=== PATIENT | male | born 1965 | race Asian ===

== ENCOUNTER 2024-05-04 10:08 | Outpatient (AMB) | payer OTHER, SELFPAY ==
--- NOTE | 2024-05-04 10:28 | MHC.PC.OV ---
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 Intake Note: establish care Power Tong Operator Required: Yes Power Tong Operator Language: Radha Power Tong Operator Name: pt refused Manager Of Network: Present Accompanied by: Daughter Followed by:: larry sanders Allergies No Known Allergies Allergy (Verified 05/04/24 10:31) Medication List - Last Reconciled 05/04/24 by Jules Franks MD cholecalciferol (vitamin D3) 5,000 units PO DAILY multivitamin 1 tab PO DAILY Tobacco use date assessed: 05/04/24 Dental Screening Dental Screen Date: 05/04/24 Did you have a dental visit in the last 12 months?: Yes Did you have a dental problem in the last 6 months where you did not have access to dental care?: No Was dental information given to patient?: No 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 ?? [facility] Last office visit/CPE:? 2022 Acute issue(s):? HTN - checks at home SBP 145-150, HLD - Elevated cholesterol A1c 5.4 Sweating ?? PMHx:? As above SurgHx:? None FHx:? Dad: DM2, HTN, HLD, Hypothyroid. Mom: Osteoporosis, HLD. SocHx:?Nonsmoker. EtOh None. No drugs PFSH Family History (Updated 05/04/24 @ 10:37 by Chacho Dan CMA) Mother Osteoporosis Father High blood pressure Diabetes Social History Housing: House Patient Tobacco Use Status: Never used Tobacco e-Cigarette/Vaping Use: Never Used Second Hand Smoke Exposure: No service: No Current occupational status: employed Current occupation: [employer] Current occupational exposures/hazards: Yes Cognitive needs: No Hearing needs: No Vision needs: Yes Questionnaire PHQ-9 Over the last 2 weeks, how often have you been bothered by any of the following problems? 1. Little interest or pleasure in doing things: not at all 2. Feeling down, depressed, or hopeless: not at all 3. Trouble falling or staying asleep, or sleeping too much: not at all 4. Feeling tired or having little energy: not at all 5. Poor appetite or overeating: not at all 6. Feeling bad about yourself - or that you are a failure or have let yourself or your family down: not at all 7. Trouble concentrating on things, such as reading the newspaper or watching television: not at all 8. Moving or speaking so slowly that other people could have noticed. Or the opposite - being so fidgety or restless that you have been moving around a lot more than usual: not at all 9. Thoughts that you would be better off or of hurting yourself in some way: not at all Total score: 0 Depression Screening Interpretation: Negative Depression Screening Done: Yes 60614 - PHQ-9 Billing: Yes Source: Developed by Drs. Raymond Evangelista, Mattie Herrera, Dre Jason and colleagues, with an educational katina from [employer]. Thrive Questionnaire Date Thrive assessed: 05/04/24 I am a: Patient What is your living situation today?: I have a steady place to live Within the past 12 months, did the food you bought not last and you didn't have the money to get more?: Never true Within the past 12 months, did you worry whether your food would run out before you got money to buy more?: Never true Do you have trouble paying for medicines?: No Do you have trouble getting transportation to medical appointments?: No Do you have trouble paying your heating and electricity bill?: No Do you have trouble taking care of your child, family member or friend?: No Do you have trouble with day-to-day activities such as bathing, preparing meals, shopping, managing finances, etc.?: No Are you currently unemployed and looking for a job?: No Are you interested in more education?: Yes Please select the resources that you would like help with: None Currently or been in a relationship where the following occur: No concerns reported THRIVE Score: 0 AUDIT C Alcohol Use Questionnaire (AUDIT-C) 1. How often do you have a drink containing alcohol?: Never 3. How often do you have six or more drinks on one occasion?: Never Total Score: 0 Score Reviewed/Action Taken: Yes ILIANA-7 AMB Questionnaire ILIANA-7 Date ILIANA - 7 assessed: 05/04/24 Feeling nervous, anxious, or on edge: 0 = Not at all Not being able to stop or control worryin = Not at all Worrying too much about different things: 0 = Not at all Trouble relaxin = Not at all Being so restless that it is hard to sit still: 0 = Not at all Becoming easily annoyed or irritable: 0 = Not at all Feeling afraid as if something awful might happen: 0 = Not at all Total ILIANA-7 score (0-4 normal; 5-9 mild; 10-14 moderate; 15-21 severe): 0 Source: Developed by Drs. Raymond Evangelista, Mattie Herrera, Dre Jason and colleagues, with an educational katina from [employer]. ILIANA-7 Assessment Billing ILIANA-7 Assessment Tool: ILIANA-7 Assessment 35226 Review of Systems Const Denies chills, Denies fatigue, Denies fever(s), Denies headache(s) and Denies weakness ENT Denies dizziness and Denies headache(s) Card Denies chest pain, Denies lightheadedness, Denies dyspnea and Denies other (Palpitations) Resp Denies cough, Denies dyspnea, Denies wheezing and Denies other ( shortness of breath) Musc Denies numbness and Denies tingling Neuro Denies dizziness, Denies headache(s), Denies numbness, Denies tingling, Denies paresthesias and Denies weakness Psych Denies anxiety and Denies depression Endo Denies fatigue Aller/Immun Denies wheezing Physical exam (Primary Care) Depression Screening Interpretation: Negative Thrive Assessment: Date of Thrive Assessment Date Thrive assessed 05/03/24 05/04/24 10:30 Currently or been in a relationship where the following occur: No concerns reported Const General: no acute distress and well developed Nutritional Appearance: well nourished Orientation/consciousness: patient oriented x3 HENMT Head: Yes normocephalic and Yes atraumatic Eyes General: appearance normal, both eyes and all related structures Pupils: Equal, round and reactive pupils present EOM: EOMs intact bilaterally Resp Effort & Inspection: normal respiratory effort Auscultation: clear to auscultation bilaterally Cardio Rate: regular rate Rhythm: regular rhythm Heart sounds: S1 normal heart sound present, S2 normal heart sound present, no gallops, no murmurs and no rubs Neuro General: patient oriented x3 and gait normal Cranial nerves: Yes Equal, round and reactive pupils present Psych Affect: normal affect Coding Level of Care Code New Pt Level 4 (85793) Diagnoses Hypertension I10 Sleep apnea G47.30 Hyperlipidemia E78.5 Elevated fasting blood sugar R73.01 Headache R51.9 Laboratory exam ordered as part of routine general medical examination Z00.00 Additional Codes ILIANA-7 Assessment Billing - ILIANA-7 Assessment Tool: ILIANA-7 Assessment 71959 ([id number]) PHQ-9 - 74347 - PHQ-9 Billing: Yes ([id number]) Assessment & Plan Assessment & Plan (1) Hypertension: Code(s): I10 - Essential (primary) hypertension Category: Medical Plan: Blood?pressure?mildly?elevated?in?the?office. Systolic?blood?pressures?into?the?150s?at?home. Goal?is?less?than?140/90 Start?losartan?25?mg?daily (2) Sleep apnea: Code(s): G47.30 - Sleep apnea, unspecified Category: Medical Plan: Concern?for?sleep?apnea Referred?to?Sleep?Medicine (3) Hyperlipidemia: Code(s): E78.5 - Hyperlipidemia, unspecified Category: Medical Plan: History?of?elevated?lipids Check labs (4) Elevated fasting blood sugar: Code(s): R73.01 - Impaired fasting glucose Category: Medical Plan: History?of?elevated?fasting?blood?sugars. ?Daughter?reports?A1c?around?5.4?which?is?towards?top?normal?range May?have?some?insulin?resistance?or?pre?diabetes. Check?A1c (5) Headache: Code(s): R51.9 - Headache, unspecified Category: Medical Plan: Occasional?headaches. Checking?labs Also,?as?above?concern?for?sleep?apnea?which?may?be?an?underlying?cause. We?can follow-up?at?next?visit (6) Laboratory exam ordered as part of routine general medical examination: Code(s): Z00.00 - Encounter for general adult medical examination without abnormal findings Category: Medical Plan: Check?labs Orders: Orders Lipid Panel Today Z00.00 - Encounter for general adult medical examination without abnormal findings Prostate Specific Antigen Scr Today Z12.5 - Encounter for screening for malignant neoplasm of prostate TSH reflex Free T4 Today Z00.00 - Encounter for general adult medical examination without abnormal findings Vitamin D 25-OH Total Today E55.9 - Vitamin D deficiency, unspecified T Spot TB Today R61 - Generalized hyperhidrosis Comprehensive Otis. Panel Fast Today Z00.00 - Encounter for general adult medical examination without abnormal findings Microalbumin, Random (w Creat) Today I10 - Essential (primary) hypertension UA and rflx microscopic Today Z00.00 - Encounter for general adult medical examination without abnormal findings Hemoglobin A1c Today R73.01 - Impaired fasting glucose Referrals Sleep Medicine Referral G47.30 - Sleep apnea, unspecified Medications: New losartan 25 mg PO DAILY 90 days 90 tabs 3RF
[2024-05-04 10:39] VITALS: BP 140/80; PULSE 72; RESP 14; TEMP 36.6; O2SAT 100; BMI 25.0
== END 2024-05-04 11:12 | disposition home or self-care (01) ==
PROVIDERS: PCP Family Medicine; Visit Provider Family Medicine
DX: I10 Essential (primary) hypertension (principal); G47.30 Sleep apnea, unspecified; E78.5 Hyperlipidemia, unspecified; R73.01 Impaired fasting glucose; R51.9 Headache, unspecified; Z00.00 Encounter for general adult medical examination without abnormal findings

== ENCOUNTER → 2024-05-04 10:08 | Outpatient (BNVA) | payer OTHER, SELFPAY | PROVIDERS: PCP Family Medicine; Visit Provider Family Medicine | DX: Z00.00 Encounter for general adult medical examination without abnormal findings (principal); I10 Essential (primary) hypertension; G47.30 Sleep apnea, unspecified; E78.5 Hyperlipidemia, unspecified; R73.01 Impaired fasting glucose; R51.9 Headache, unspecified | CPT/HCPCS: 96127 ==

== ENCOUNTER 2024-05-04 11:33 | Outpatient (REF) | payer OTHER, SELFPAY ==
--- OUTSIDE RECORDS SUMMARY | 2024-05-04 13:12 | XMS_ITS | Clinical Summary ---
Author Organization [facility] Address [address] [place] [address] Care Team Providers Care Academic Dean Name Role Phone Renita Brown [facility] Primary Care Provider Source Comments PLEASE NOTE, if this patient is a minor, it may be UNLAWFUL to discuss sensitive information that is contained in these records (such as FAMILY PLANNING, MENTAL HEALTH or SUBSTANCE ABUSE) with the minor patient's parent or other person without the patient's specific authorization.[facility] Allergies No known active allergies Medications cholecalciferol, vitamin D3, (VITAMIN D3) 50,000 unit tab tabletIndication s:Low serum vitamin D Take 1 Tab by mouth once a week 12 Tab 1 07/06/2018 Active Active Problems Problem Noted Date Diagnosed Date Low serum vitamin D 07/06/2018 Immunizations Name Administration Dates Next Due TDAP 07/03/2018 Family History Medical History Relation Name Comments Diabetes Father Arthritis Mother Asthma Sister Relation Name Status Comments Brother Alive Father Alive Mother Alive Sister Alive Social History Tobacco Use Types Packs/Day Years Used Date Smoking Tobacco: Never Smokeless Tobacco: Former Alcohol Use Standard Drinks/Week Comments No 0 (1 standard drink = 0.6 oz pur e alcohol) Social Connections Answer Date Recorded Social Connections and Isolation 0 11/16/2018 Financial Resource Strain Answer Date R ecorded Financial Resource Strain 0 2018 Stress Answer Date Recorded Stress 0 11/16/2018 Physical Activity Answer Date Recorded Physical Activity 0 11/16/2018 Food Insecurity Answer Date Recorded Food 0 11/16/2018 Transportation Needs Answer Date Record ed Transportation 0 11/16/2018 Housing Stability Answer Date Recorded Housing 0 11/16/2018 Safety and Environment Answer Date Thomas rded Safety 0 11/16/2018 Utilities Answer Date Recorded Utilities 0 11/16/2018 Employment Answer Date Recorded Employment 0 11/16/2018 Sex and Gender Information Value Date Recorded Sex Assigned at Male 07/03/2018 6:25 AM PDT Legal Sex Male 11:29 AM PDT Gender Identity Male 07/03/2018 6:25 AM PDT Sexual Orientation Straight 07/03/2018 6: 25 AM PDT Last Filed Vital Signs Vital Sign Reading Time Taken Comments Blood Pressure 130/92 07/03/2018 9:17 AM EDT Pulse 64 07/03/2018 9:17 AM EDT Temperature 36.4 ??C (97.5 ??F) 07/03/2018 9:17 AM ED T Respiratory Rate 16 07/03/2018 9:17 AM EDT Oxygen Saturation - - Inhaled Oxygen Concentration - - Weight 69.9 kg (154 lb 3.2 oz) 07/03/2018 9:17 A M EDT Height 164.1 cm (5' 4.61 ) 07/03/2018 9:17 AM ED T Body Mass Index 25.97 07/03/2018 9:17 AM EDT Plan of Treatment Not on file Insurance [employer] Member Subscriber Plan / Payer (Ef fective 2018-Present) Name:Hardy Jcak Relation to Subscriber:Self Name:Hardy Jack Payer ID:[id number] Type:Indemnity Address: [facility] [address] [place] [address] Care Teams Academic Dean Relationship Specialty Start Date End Date Renita Brown FNP [address] [place] [id number] PCP - General Internal Medicine 07/23/18
--- OUTSIDE RECORDS SUMMARY | 2024-05-04 13:12 | XMS_ITS | Clinical Summary ---
Author Organization [facility] Address [address] [place] [id number] Care Team Providers Care Ladder Operator Name Role Phone Ann Marie Mohan DIGITAL ARTIST Primary Care Provider [phone] Allergies No known active allergies Medications Medication Sig Dispensed Refills Start Date End Date Status multivitamin capsule Take 1 capsule by mouth 1 (one) time each day. Active Active Problems Problem Noted Date Diagnosed Date Mixed hyperlipidemia 05/30/2021 Impaired fasting glucose 05/30/2021 Low serum vitamin D 07/06/2018 Resolved Problems Problem Noted Date Diagnosed Date Resolved Date COVID-19 05/19/2020 05/29/2021 Immunizations Name Administration Dates Next Due COVID-19 Pfizer SARS-CoV2 mR NA PF 30mcg/0.3mL Vaccine (Purple) 03/14/2021,08/12/2020,07/22/2020 Influenza, trivalent (IIV3), split virus (single-dose) PF 03/05/2021 Tdap 07/03/2018 Zoster, Recombinant (Shingrix) 03/25/2020,2019 Family History Medical History Relation Comments Diabetes Father Relation Status Comments Father Alive Mother Alive Social History Tobacco Use Types Packs/Day Years Used Date Smoking Tobacco: Never Smokeless Tobacco: Never Comments:Works @ [employer] Alcohol Use Standard Drinks/Week Comments Never 0 (1 standard drink = 0.6 oz pur e alcohol) Humiliation, Afraid, Rape, and Kick questionnair e Answer Date Recorded Within the last year, have y ou been afraid of your partner or ex-partner? No 05/19/2020 Within the last year, have y ou been humiliated or emotionally abused in other ways by your partner or ex-partner? No Within the last year, have y ou been kicked, hit, slapped, or otherwise physically hurt by your partner or ex-partner? No 05/19/2020 Within the last year, have y ou been raped or forced to have any kind of sexual activity by your partner or ex-partner? No 05/19/2020 AUDIT-C Answer Date Recorded Q1: How often do you have a drink containing alc ohol? Never 05/19/2020 Average Number of Drinks Not on file 021 Frequency of Binge Drinking Not on file 04/25 Overall Financial Resource Strain (CARDIA) Answe r Date Recorded How hard is it for you to pa y for the very basics like food, housing, medical care, and heating? Patient declined 05/19/2020 PHQ-2 Answer Date Recorded Depression Risk (PHQ2) Score 0 [facility] - Occupational Stress Questionnaire Answer Date Recorded Do you feel stress - tense, restless, nervous, or anxious, or unable to sleep at night because your mind is troubled all the time - these days? Only a little 05/19/2020 Exercise Vital Sign Answer Date Recorde d On average, how many days pe r week do you engage in moderate to strenuous exercise (like a brisk walk)? 0 days Minutes of Exercise per Session Not on file 05/19/2020 Hunger Vital Sign Answer Date Recorded Within the past 12 months, y ou worried that your food would run out before you got the money to buy more. Never true 05/19/19 21 Within the past 12 months, t he food you bought just didn't last and you didn't have money to get more. Never true 05/19/2020 PRAPARE - Transportation Answer Date Re corded In the past 12 months, has l ack of transportation kept you from medical appointments or from getting medications? No 04/25 In the past 12 months, has l ack of transportation kept you from meetings, work, or from getting things needed for daily living? No 05/19/2020 Sex and Gender Information Value Date Recorded Sex Assigned at Not on file Gender Identity Not on file Sexual Orientation Not on file Last Filed Vital Signs Vital Sign Reading Time Taken Comments Blood Pressure 127/85 09/12/2022 9:05 AM EDT Pulse 64 09/12/2022 9:05 AM EDT Temperature 36.6 ??C (97.8 ??F) 09/12/2022 9:05 AM ED T Respiratory Rate 14 05/19/2020 8:03 AM EST Oxygen Saturation 98% 09/12/2022 9:05 AM EDT Inhaled Oxygen Concentration - - Weight 70 kg (154 lb 6.4 oz) 09/12/2022 9:05 AM EDT Height 166 cm (5' 5.35 ) 05/29/2021 9:35 AM EST Body Mass Index 25.42 05/29/2021 9:35 AM EST Plan of Treatment Health Maintenance Due Date Last Done Comments CT Colonography 1967 Cologuard 1967 Colonoscopy 1967 Colorectal Cancer Screening 1967 FOBT/FIT 1967 Hepatitis C Screening 1967 Sigmoidoscopy 1967 PHQ-9 Depression Screen 1979 ILIANA-7 Anxiety Screen 06/11/1985 Annual Preventive Exam 09/13/2023 3, 05/29/2021, 02/26/2020, Additional history exists COVID-19 Vaccine (2023-2 5 season) 2023 03/14/2021, 08/12/2020, 07/22/2020 Influenza Vaccine (#1) 2023 03/05/2021 DTaP,Tdap,and Td Vaccines (2 - Td or Tdap) 07/03/2028 07/03/2018 RSV Vaccine (SCDM) (1 - 1-do se 75+ series) 06/11/2042 Zoster Vaccines Completed 03/25/2020, 12/18/2019 Care Teams Ladder Operator Relationship Specialty Start Date End Date Ann Marie Mohan, ANGELINA [address] [place] [id number] PCP - General Family Medicine 05/29/21
[2024-05-04 14:08] LABS: Appearance Urine Clear; Color Urine Yellow; Glucose Urine UA Negative (Negative); Leukocyte Esterase Urine Negative (Negative); Nitrite Urine Negative (Negative); PH 6.5 (5.0-9.0); Specific Gravity - Urine 1.015 (1.005-1.025); Urine Blood Negative (Negative); Urine Ketones Negative (Negative); Urine Protein Negative (Neg-Trace)
[2024-05-04 14:31] LABS: Estimated Average Glucose 108 mg/dL; Hemoglobin A1C 137.5992 umol/L; Hemoglobin A1c % 5.4 % (<6.0); Total Hemoglobin (HGBA1C) 3855.1364 umol/L
[2024-05-04 14:32] LABS: Creatinine Urine 124.58 mg/dL; Microalbum/Creatinine Ratio Ur 8.8 ug/mg cr (<30)
[2024-05-04 15:31] LABS: Prostate Specific Antigen Scr 0.73 ng/mL (<0.05-4.0)
[2024-05-04 15:36] LABS: Alanine Aminotransferase 23 U/L (0-40); Albumin Level 4.6 g/dL (3.5-5.0); Anion Gap 10 (12-20); Aspartate Amino Transferase 23 U/L (5-37); Blood Urea Nitrogen 10 mg/dL (9-16); Calcium 8.9 mg/dL (8.4-10.2); Carbon Dioxide 27 mmol/L (22-29); Chloride 105 mmol/L (96-108); Cholesterol 171 mg/dL (<200); Estimated Glomerular Filt Rate > 60; Glucose Fasting 101 mg/dL (60-99); HDL Cholesterol 51 mg/dL (>40); LDL Cholesterol Calculated 92 mg/dL (<100); Sodium 138 mmol/L (135-145); Total Protein 7.8 g/dL (6.5-8.0); Triglycerides 141 mg/dL (<150)
[2024-05-04 15:38] LABS: TSH reflex Free T4 2.32 uIU/mL (0.32-4.0); Vitamin D 25-OH Total 66.8 ng/mL (>30)
[2024-05-04 17:29] LABS: Alkaline Phosphatase 67 U/L (39-117)
[2024-05-07 15:14] LABS: TS Negative Control Passed; TS Panel A 23; TS Panel B 15; TS Positive Control Passed; TSpotTB Positive (Negative)
== END 2024-05-04 11:34 | disposition home or self-care (01) ==
LOC: HO.WFDLDS 11:33
PROVIDERS: Visit Provider Family Medicine
DX: Z00.00 Encounter for general adult medical examination without abnormal findings (principal); R73.01 Impaired fasting glucose; I10 Essential (primary) hypertension; E55.9 Vitamin D deficiency, unspecified; R61 Generalized hyperhidrosis; Z12.5 Encounter for screening for malignant neoplasm of prostate
CPT/HCPCS: 36415; 80053; 80061; 81003; 82043; 82306; 82570; 83036; 84153; 84443; 86481

== ENCOUNTER 2024-05-13 12:01 | Outpatient (REF) | payer OTHER, SELFPAY ==
--- NOTE | ~2024-05-13 | XR_ITS ---
EXAMINATION: XR CHEST CLINICAL INFORMATION: R61 - Generalized hyperhidrosis COMPARISON: None available. TECHNIQUE: 2 views of the chest were obtained. FINDINGS: No consolidation, pleural effusion or pneumothorax. No hyperinflation. Cardiomediastinal silhouette size is normal. Multilevel thoracolumbar spondylosis. XR/XR chest 2V IMPRESSION: No acute airspace disease. Multilevel thoracolumbar spondylosis. Electronically signed by: Ollie Louie MD 05/13/2024 03:52 PM EST
--- OUTSIDE RECORDS SUMMARY | 2024-05-13 13:08 | XMS_ITS | Clinical Summary ---
Author Organization [employer] Address [address] [place] [address] Care Team Providers Care Undercover Agent Name Role Phone Ann Marie Mohan DONOR FLOOR TECHNICIAN Primary Care Provider [phone] Allergies No known active allergies Medications multivitamin capsule Take 1 capsule by mouth [...] Tobacco: Never Smokeless Tobacco: Never Comments:Works @ [employer] Alcohol Use Standard Drinks/Week Comments Never 0 [...] Date Recorded Depression Risk (PHQ2) Score 0 [facility] - Occupational Stress Questionnaire Answer Date Recorded [...] Recorded Sex Assigned at Not on file Legal Sex Male 3:03 PM MST Gender Identity Not on file Sexual Orientation Not on file Occupation Industry Job Start Date Job End Date Not on file Not on file Not on file Not on file Last Filed Vital Signs [...] Depression Screen 1979 ILIANA-7 Anxiety Screen 06/11/1985 Pneumococcal Vaccine: 50+ Ye ars (1 of 1 - PCV) 06/11/2017 Annual Preventive Exam 09/13/2023 3, 05/29/2021, 02/26/2020, Additional history exists COVID-19 Vaccine (4 - 2023-2 5 season) 2023 03/14/2021, 08/12/2020, 07/22/2020 Influenza Vaccine (#1) 2023 03/05/2021 DTaP,Tdap,and Td Vaccines (2 - Td or Tdap) 07/03/2028 07/03/2018 RSV Vaccine (SCDM) (1 - 1-do se 75+ series) 06/11/2042 Zoster Vaccines Completed 03/25/2020, 12/18/2019 Insurance [employer] Care Teams Undercover Agent Relationship Specialty Start Date End Date Ann Marie Mohan NP [address] [place] [id number] PCP - General Family Medicine 05/29/21
--- OUTSIDE RECORDS SUMMARY | 2024-05-13 13:08 | XMS_ITS | Clinical Summary ---
Author Organization [facility] Address [address] [place] [address] Care Team Providers Care Accelerator Systems Director Name Role Phone Renita Brown [facility] Primary Care Provider [phone] Source Comments PLEASE NOTE, if this patient [...] Plan of Treatment Not on file Insurance [employer] Member Subscriber Plan / Payer (Ef fective 2018-Present) Name:Hardy Jack Relation to Subscriber:Self Name:Hardy Jack Payer ID:[id number] Type:Indemnity Address: [facility] [address] [place] [address] Care Teams Accelerator Systems Director Relationship Specialty Start Date End Date Renita Brown FNP [address] [place] [id number] PCP - General Internal Medicine 07/23/18
== END 2024-05-13 12:02 | disposition home or self-care (01) ==
LOC: HO.HMGCX 12:01
PROVIDERS: PCP Family Medicine; Visit Provider Family Medicine
DX: R61 Generalized hyperhidrosis (principal)
CPT/HCPCS: 71046

== ENCOUNTER → 2024-05-13 12:04 | Outpatient (BNV) | payer OTHER, SELFPAY | PROVIDERS: PCP Family Medicine; Visit Provider Radiology Diagnostic Radiology | DX: M47.895 Other spondylosis, thoracolumbar region (principal) | CPT/HCPCS: 71046 ==